=== PATIENT | female | born 1975 | race Caucasian/White ===

== ENCOUNTER → 2021-04-05 | Outpatient (CLI) | payer OTHER, SELFPAY ==
--- NOTE | 2021-04-05 07:40 | ASPS_PTH ---
PATIENT: RC DIANA LOC: [facility]#:[id number] AGE/SX: 45/F ROOM: RE04/05/[address]: Dr. Ricky Norman MD : 1975 BED: DIS: 04/05/2021 SPEC #: [id number] RECD: 04/05/21 10:57 STATUS: GARY WHYTE #: [id number] ALFREDO: 04/05/21 07:[address]: Ricky Norman DEPT: CYTOLOGY RECD BY: Mecca Ahuja ENTERED: 04/05/21 12:56 SP TYPE: ASPIRATION OTHR DR: Dr. Abrahan Ibrahim MD Tissues: Thyroid gland, NOS Procedures: Special Stain Group II Cytology Other HEADER OPERATION: Right thyroid fine needle aspiration PRE-OP DIAGNOSIS: Bilateral thyroid nodules TISSUE SUBMITTED: Right thyroid slides x10 DIAGNOSIS CYTOLOGY Right thyroid nodule, FNA (smears): Consistent with benign follicular/colloid nodule. Adequate for evaluation. See comment. SJ:dunia 04/08/2021 COMMENT Correlation with clinical, radiologic findings and appropriate follow up are necessary. Please make reference to previous specimens ([id number]), right thyroid nodule, FNA with diagnosis of ?consistent with colloid nodule? and ([id number]) right thyroid, FNA with diagnosis of ?consistent with cystic colloid nodule.? CYTOLOGY STUDY Slides are reviewed. CYTOLOGY GROSS Received are ten smears labeled with the patient's name and designated per the requisition as right thyroid. Submitted for staining. / dunia 04/05/2021 TC:5 CPT: 60513
[2021-04-05 07:56] VITALS: BMI 25.1
== END | disposition home or self-care (01) ==
LOC: LABSPEC 11:31
PROVIDERS: PCP Family Medicine; Visit Provider Surgery
DX: E04.2 Nontoxic multinodular goiter (principal)
CPT/HCPCS: 88161; 88313

== ENCOUNTER → 2021-04-23 12:06 | Outpatient (CLI) | payer OTHER, SELFPAY ==
[2021-04-05 07:56] VITALS: BMI 25.1
--- NOTE | 2021-04-23 12:53 | ST.MBS ---
Modified Barium Swallow - Patient Information Study Date: 04/23/21 Study Time: 12:00 Direct Billable Minutes: 90 Total Minutes procedure & reportin Diagnosis: Dysphagia, unspecified (R13.10) Referring Physician: Ricky Norman Reason for Referral: Objectively assess swallow function and risk for aspiration. Medical History: PMH: Acid reflux, Anxiety, Arthritis, Asthma exercise induced, Depression, Dysphagia. The patient additionally reports history of benign thyroid nodule. She has complaints of sensation of air that she must clear prior to her swallow. She reports she will occasionally cough with food due to a sensitive gag reflex, but otherwise denies coughing/throat clearing with po intake. Current Diet Ordered: Regular Textures / Thin Liquids Dentition: WNL - Study Findings Consistencies: Thin Liquid, [place] Thick Liquid, Honey Thick Liquid, Pudding, Cookie - Penetration-Aspiration Scale Penetration-Aspiration Scale: OBJECTIVE ASSESSMENT OF SWALLOW FUNCTION (QUANTITATIVE ? PER TRIAL): PENETRATION / ASPIRATION SCALE (COLE): 1 = does not enter airway 2 = enters airway/above vocal folds/ejected 3 = enters airway/above vocal folds/not ejected 4 = enters airway/contacts vocal folds/ejected 5 = enters airway/contacts vocal folds/not ejected 6 = enters airway/below vocal folds/ejected 7 = enters airway/below vocal folds/not ejected despite effort 8 = enters airway/below vocal folds/no effort VIDEOFLOROSCOPIC SCALE SCORE (COLE): Grade I = aspiration of material that has penetrated into the laryngeal vestibule, intact cough reflex Grade II = aspiration < 10 % of the bolus, intact cough reflex Grade III = aspiration of < 10 % of the bolus, reduced cough reflex or aspiration of > 10 % of the bolus, intact cough reflex Grade IV = aspiration of > 10 % of the bolus, reduced cough reflex - Penetration-Aspiration Scale Score Thin Liquid via teaspoon Result: 1= does not enter airway Thin Liquid via small single sip from cup Result: 1= does not enter airway Thin Liquid via large single sip from cup Result: 1= does not enter airway Thin Liquid via sequential sips from cup Result: 1= does not enter airway [place] Thick Liquid via small single sip from cup Result: 1= does not enter airway Honey Thick Liquid via small single sip from cup Result: 1= does not enter airway Pudding Result: 1= does not enter airway Cookie Result: 1= does not enter airway Thin Liquid via single sip from straw Result: 2= enter airway/above vocal folds/ejected - Trace penetration. Thin Liquid via single sip from straw Trial 2 Result: 1= does not enter airway Thin Liquid via sequential sips from straw Result: 1= does not enter airway - Oral Phase Labial Seal: No Labial Escape Tongue Control During Bolus Hold: Posterior escape of less than half of bolus Bolus Preparation/Mastication: Timely and efficient chewing and mashing Bolus Transport/Lingual Motion: Brisk tongue motion Oral Residue: Residue collection on oral structures - Collection of residue noted only with cookie trial, which the patient cleared independently with use of a second swallow. - Pharyngeal Phase Initiation of Pharyngeal Swallow: Bolus head in pyriforms Soft Palate Elevation: Trace column of contrast/air between soft palate and pharyngeal wall Laryngeal Elevation: Comp. Superior move thyroid cart w/comp. apprx arytenoid cart-epig pet Anterior Hyoid Excursion: Complete anterior movement Epiglottic Movement: Partial inversion Laryngeal Vestibule Closure at Height of Swallow: Complete; no air/contrast in laryngeal vestibule Pharyngeal Stripping Wave: Present - diminished Pharyngoesophageal Segment Opening: Complete distension and complete duration; no obstruction of flow Tongue Base Retraction: Trace column of contrast between tongue base & post. pharyngeal wall Pharyngeal Residue: Complete pharyngeal clearance - Esophageal Phase Esophageal Clearance: Complete clearance - Treatment Strategies Effects of treatment strategies attemped:: No strategies assessed at this time as the patient presents with swallow function grossly WNL. - Diagnosis/Impression Diagnosis: Swallow function grossly WNL Impression: The patient presented with mildly delayed initiation of the swallow, especially noted with consumption of thin liquids. She has mildly decreased pharyngeal stripping wave; however, the patient demonstrates good airway closure and adequate pharyngeal contraction resulting in only trace pharyngeal residues after the swallow. She had one occurrence of trace penetration of thin liquids in the laryngeal vestibule above the vocal folds via straw that fully ejected. - Recommendations Diet: Regular Textures, Thin Liquids Compensatory Strategies: Small Bites, Small Sips, Sitting upright, Remain sitting upright for 30 minutes after PO intake Recommend Repeat Modified Barium Swallow: No Need for Skilled Speech Therapy Services: No Education Completed: 1. Described result of evaluation., 5. Patient demonstrates recommended strategies. - Status Active ST Patient: Not Active - Contact Information [facility] Speech Therapy:: Chata Duran M.A., [facility] Speech Language Pathologist [facility] [address] [place] [address] [email or web address] [phone]
== END ==
PROVIDERS: PCP Family Medicine; Referring Provider Surgery; Visit Provider Surgery
DX: R13.10 Dysphagia, unspecified (principal)
CPT/HCPCS: 74230; 92611

== ENCOUNTER → 2021-05-17 | Outpatient (CLI) | payer OTHER, SELFPAY ==
--- NOTE | 2021-05-17 | LES_PTH ---
PATIENT: RC DIANA LOC: [facility] U#:[id number] AGE/SX: 46/F ROOM: RE05/17/[address]: Dr. Ricky Norman MD : 1975 BED: DIS: 05/17/2021 SPEC #: [id number] RECD: 05/17/21 14:47 STATUS: GARY RERicki #: [id number] ALFREDO: 05/17/21 00:[address]: Ricky Norman DEPT: SURGICAL PATHOLOGY RECD BY: Anthony Wiley ENTERED: 05/20/21 08:06 SP TYPE: Lesion OTHR DR: Dr. Abrahan Ibrahim MD Tissues: Skin of face, NOS Procedures: Surgery Specimen Level IV HEADER OPERATION: Excision right facial lesion PRE-OP DIAGNOSIS: Facial lesion TISSUE SUBMITTED: Right facial lesion MICROSCOPIC DIAGNOSIS Right facial lesion, excisional biopsy: Inflamed fibroepithelial polyp, completely excised. See comment. STEFANIA:dunia 05/21/2021 COMMENT Immunohistochemistry ([id number]) supports the above diagnosis. Case has been reviewed in consultation with Dr. Bowers who concurs with the above diagnosis. IDC:AM MICROSCOPIC DESCRIPTION Slides are reviewed. GROSS DESCRIPTION Received in fixative is one container labeled with the patient's name and designated right face. The specimen consists of a candelario-white skin ellipse measuring 0.7 x 0.4 x 0.3 cm. There is a raised candelario lesion on the surface measuring 0.5 x 0.5 x 0.3 cm. The specimen is inked, serially sectioned and submitted entirely in one cassette. / SJ:dunia 05/20/21 TC:1 CPT: 73254
--- NOTE | 2021-05-17 | IMM_PTH ---
PATIENT: RC DIANA LOC: [facility] U#:[id number] AGE/SX: 46/F ROOM: RE05/17/[address]: Dr. Ricky Norman MD : 1975 BED: DIS: 05/17/2021 SPEC #: [id number] RECD: 05/21/21 11:11 STATUS: GARY REQ #: [id number] ALFREDO: 05/17/21 00:[address]: Ricky Norman DEPT: IMMUNOHISTOCHEMISTRY RECD BY: Lori Bhakta ENTERED: 05/21/21 11:12 SP TYPE: IMMUNO OTHR DR: Dr. Abrahan Ibrahim MD Tissues: Skin of face, NOS Procedures: CK5-6 (add) MELAN-A (initial) P40 (add) S-100 (add) PHYSICIAN & INSTITUTION [place] [phone] SPECIMEN INFORMATION: Tissue Source: Right facial lesion Clinical Info: Facial lesion Specimen Number: [id number] CPT code: 40714, 02845 x3 METHODOLOGY: Deparaffinized sections of prefer/formalin-fixed tissue or PAP/DQ stained slides are incubated with monoclonal/polyclonal antibodies/oligonucleotide probes. Localization is made via biotin free immunoperoxidase method. Appropriate controls are performed and reacted as expected. Results on target cell population are indicated in the following table: RESULTS: ANTIBODY / CLONE RESULT Melan A (A103) negative S-100 (4C4.9) negative CK5-6 (D5 & 1684) positive P40 (BC28) positive These tests were developed and their performance characteristics determined by [facility]. They may not have been cleared or approved by the U.S. Food and Drug Administration. The FDA has determined that such clearance or approval is not necessary. The above immunohistochemical/dualISH markers are ordered and reviewed by the Pathologist. INTERPRETATION: Right facial lesion, excision: Consistent with inflamed fibroepithelial polyp. SJ:dunia 05/22/2021
[2021-05-17 05:30] VITALS: BMI 25.4
== END | disposition home or self-care (01) ==
LOC: LABSPEC 15:09
PROVIDERS: PCP Family Medicine; Referring Provider Surgery; Visit Provider Surgery
DX: L98.8 Other specified disorders of the skin and subcutaneous tissue (principal)
CPT/HCPCS: 88305; 88341; 88342

== ENCOUNTER 2021-06-20 11:33 | Day surgery (SDC) | payer OTHER, SELFPAY ==
[2021-05-17 05:30] VITALS: BMI 25.4
--- NOTE | 2021-06-19 15:59 | EKG12_ITS ---
Test Reason : PRE-OP Blood Pressure : / mmHG Vent. Rate : 074 BPM Atrial Rate : 074 BPM P-R Int : 170 ms QRS Dur : 074 ms QT Int : 380 ms P-R-T Axes : 050 078 059 degrees QTc Int : 421 ms Normal sinus rhythm Normal ECG Confirmed by AMANDA GRANDA, TEE ([id number]), design editor SHREYA NERI ([id number]) on 06/20/2021 9:07:16 AM Referred By: Ricky Norman Confirmed By:TEE PATEL MD
[2021-06-19 16:27] LABS: Hematocrit 41.1 % (37-47); Hemoglobin 13.2 g/dL (12.0-15.0); Mean Corp Hgb Conc 32.1 g/dL (32-36); Mean Corpuscular Hgb 27.4 pg (27.0-32.0); Mean Corpuscular Volume 85.3 fL (81-99); Mean Platelet Vol. 10.1 fl (6.2-12.0); Platelet Count 248 K/mm3 (150-450); RBC Distribution Width CV 12.3 % (11.6-14.6); RBC Distribution Width SD 38.5 fl (35.1-43.9); Red Blood Count 4.82 M/mm3 (4.2-5.4); White Blood Count 8.5 K/mm3 (4.4-11.0)
[2021-06-19 16:34] LABS: Anion Gap 3 (5-15); BUN 11 mg/dL (7-18); BUN/Creat Ratio 17.1 RATIO (10-20); Calcium,Total 8.7 mg/dL (8.5-10.1); Chloride 105 mmol/L (98-107); Creatinine, Serum 0.64 mg/dL (0.55-1.02); EST Glomerular Filtration Rate 104 mL/min (>60); Est Glom Filt Rate - Afr Amer 126 mL/min (>60); Glucose 98 mg/dL (74-106); Potassium 3.7 mmol/L (3.5-5.1); Sodium Level 138 mmol/L (136-145)
[2021-06-20] VITALS (7 sets, daily range): BP systolic 115–138; BP diastolic 67–83; PULSE 80–105; RESP 14–16; TEMP 35.9–36.4; O2SAT 97–100; BMI 25.2
--- NOTE | 2021-06-20 11:57 | HP.PCM_ITS ---
History and Physical Date of Admission: 06/20/21 Chief Complaint: update H&P for thyroid surgery Vp Construction Required: No Is patient in pain?: No Allergies chlorhexidine Adverse Reaction (Mild, Verified 05/21/21 09:38) Other Medications Ibuprofen [Motrin] 800 mg PO TID 08/18/15 [History Confirmed 05/21/21] multivitamin 1 tab PO DAILY 04/05/21 [History Confirmed 05/21/21] Is last menstrual period known: No Post menopausal: No Patient : No PFSH Medical History Acid reflux Anxiety Arthritis Asthma, exercise induced Depression Dysphagia Hemorrhoids Surgical History Previous back surgery S/P arthroscopy of knee S/P bladder repair S/P carpal tunnel release S/P tonsillectomy Family History Mother Breast cancer Heart disease CVA (cerebral vascular accident) Thyroid disorder Father Hypertension Heart disease Cancer esophageal cancer Social History Smoking Status: Never smoker alcohol intake: current alcohol intake frequency: a few times a month HPI HPI HPI: RC DIANA, is a 46 F who presents to the office today for suture removal and update history and physical for an elective upcoming lobectomy. Patient had an excision of right cheek skin lesion by Dr. Norman on 05/17. She returns for suture removal. Pathology is pending. Patient denies recent hospitalizations or illnesses. She denies previous cardiac issues. She denies seeing a lead php developer. She notes history of exercise induced asthma. She denies having to use an inhaler. She notes nausea, vomiting s/p anesthesia. She denies recent medication change. Patient's previous history from Dr. Norman: RC DIANA, is a 45 F who presents to the office today for surgical consultation regarding thyroid nodules. The patient is referred by Rebekah ramírez, [employer] and a written copy of my surgical consult recommendations will return to her. At the [facility] on March 25, 2021 the patient had thyroid ultrasound performed. The right lobe measured 4.8 x 2.5 x 2.5 cm. In the right mid lobe there is a 3.8 x 2.4 x 2.9 cm nodule previously aided in 3.5 x 2.1 x 2.5. This was TI-RADS 5. FNA advised. The left lobe of the thyroid measured 4.5 x 1.1 x 1.3 cm. The left lobe there is a 0.6 x 0.2 x 0.5 cm nodule previously had been 0.5 x 0.4 x 0.5 cm. TI-RADS 4. No fine-needle aspiration or follow-up recommended The patient presents stating that she is having some trouble swallowing. She states that she can swallow food without discomfort but when she goes to simply swallow saliva she feels like there is an air block and that she is swallowing air. She then has to burp or belch. She reminds me that I have assisted her with a fine-needle aspiration of the thyroid before. I do not have records of that she states it was 2017 performed at the clinic of the right lobe and that it was benign. Family history is notable that her mother had a total thyroidectomy. The patient does not believe that was due to malignancy. Laboratory demonstrates March 2021 she had a TSH level of 0.691 RC DIANA, is a 46 F who presents to the office today for ongoing surgical follow-up regarding thyroid nodules. On April 05, 2021 I did a right th yroid ultrasound-guided fine-needle aspiration with cytology consistent with a benign follicular colloid nodule. She has a 3.8 x 2.4 x 2.9 cm right thyroid nodule. She has a 0.6 x 0.2 x 0.5 cm left thyroid nodule TI-RADS 4. The patient was concerned about a feeling of air swallowing so on April 23, 2021 a modified barium swallow was obtained. This was performed via speech therapy. The diagnosis was that the swallowing function was grossly normal. There did not appear to be impingement by the thyroid. She is interested in pursuing at least a right thyroid lobectomy. She is unsure as to how to proceed on the left. ROS General General: No weight change, appetite, fatigue, colon cancer, breast cancer or weakness HEENT HEENT: No difficulty swallowing, eye injury, eye surgery, swollen glands or hoarseness Endo Endocrine: No thyroid disease, diabetes mellitus, thyroid cancer, Hair loss, heat intolerance or cold intolerance Skin Skin: No rash or changing moles Breast Breast: No left breast lump, right breast lump, nipple discharge, breast pain, abnormal mammogram, abnormal US or breast enlargement Musc Musculoskeletal: No back problems, arthritis, rheumatoid arthritis, gout or edmundo nt pain Cardio Cardiovascular: No murmur, pacemaker, heart disease, atrial fibrillation, high blood pressure, heart attack, heart stent, palpitations, shortness of breat with exertion or chest pain Psych Psychiatric: No depression, anxiety or hearing voices Resp Respiratory: No shortness of breath, No sleep apnea, No cough, No COPD, No asthma, No emphysema and No wheezing Gastro Gastrointestinal: No abdominal pain, No nausea or vomiting, No diarrhea, No constipation, No blood in stool, No acid reflux, No hemorrhoids, No ulcers, No gallbladder problem and No black,tarry stools Spike Hematologic: No blood thinners, No blood disorders, No bleeding, No anemia and No blood clots Neuro Neurologic: No system reviewed and no additional complaints, except as documented, No as per HPI, No abnormal gait, No abnormal hearing, No abnormal movements, No abnormal speech, No behavioral changes, No burning sensations, No confusion, No convulsions, No disequilibrium, No dizziness, No localized weakness, No frequent falls, No headache(s), No lack of coordination, No loss of vision, No memory loss, No numbness, No other visual disturbances, No radicular pain, No restless legs, No sensory deficit, No syncope, No tingling, No tremor(s), No weakness and No other Exam Const General: cooperative, healthy appearing, comfortable and no acute distress [facility] Head: normal to inspection Eyes General: appearance normal, both eyes and all related structures Neck Neck: normal visual inspection Neck mass: No Resp Effort & Inspection: normal respiratory effort Auscultation: clear to auscultation bilaterally Cardio Rate: regular rate Rhythm: regular rhythm GI Inspection: normal to inspection Palpation: soft Auscultation: normal bowel sounds Skin Other: Right cheek- incision c/d/i. Four sutures were entirely removed from the incision Neuro General: no focal motor deficits and CN's II-XI intact bilaterally Extrem General: normal to inspection Psych Appearance: grossly normal Affect: normal affect Assessment and Plan Assessment and Plan (1) Skin lesion of face: Status: Acute Comment: Successful excision right cheek skin lesion Plan - Briana HINSON PA-C: Pathology pending (2) Right thyroid nodule: Status: Acute Plan - Briana HINSON PA-C: Dr. Norman will plan to perform a right thyroid lobectomy. Procedure details, risks and benefits have been explained. Patient has had the opportunity to ask and have questions answered. Patient verbally understands and agrees with the plan. We will call patient with pathology results. Coding Level of Care Code No Charge Diagnoses Skin lesion of face L98.9 Right thyroid nodule E04.1 Comment Update H&P 05/21/21 3099<Electronically signed by Briana HINSON PA-C> I have re-examined the patient. There are no clinical changes since date of exam. Ricky Norman M.D., F.A.C.S.
[2021-06-20] MEDS: Lactated Ringers 1,000 ML 100 ML IV ×2 (12:02→13:30)
--- NOTE | 2021-06-20 12:08 | EX.PCM.DISCH ---
Discharge Instructions Procedure General Surgery Diet Discharge Diet: Light diet - advance as tolerated (if you have questions about your diet instructions, please talk to you doctor.) Activity Discharge Activity: May Not Drive (for 3-5 days or while taking narcotic pain medicine.) May shower in (days): 1 Lifting Restrictions: 10 pounds Dressing / Incision Call your doctor if your incision/area has: Continuous Slow Oozing, Sudden Increased Bleeding, Increased Pain/ Swelling, Increased Redness and Foul Smelling Discharge Call your doctor if you observe: Fever of 101 or Higher Suture Line Care: Avoid Pulling/Pushing and Avoid Pinching/Bending Follow Up Care Please Follow Up With: Ricky Normna MD When: Call [phone] to make an appointment to be seen in about 10 days. Test Results: You may remove your tape dressing tomorrow. You may shower over the surgical glue. The surgical glue will gradually wear off. Ricky Norman M.D., F.A.C.S. Discharge Plan Admission Primary Reason for Your Visit: Right thyroid nodule Attending Provider: Ricky Norman Primary Care Provider: Abrahan Ibrahim Discharge Orders/Prescriptions Prescriptions: Continued Ibuprofen [Motrin] 800 MG tablet 800 mg PO TID PRN (Reason: Pain) RF: 0 Referrals / Follow Up: Abrahan Ibrahim MD [Primary Care Provider] - Disposition Disposition (needs filled in before D/C Order can be placed): Home, Self Care
--- NOTE | 2021-06-20 13:30 | THYROID_PTH ---
PATIENT: RC DIANA [place] [facility] [place][id number] AGE/SX: 46/F ROOM: RE06/20/[address]: Dr. Ricky Norman MD : 1975 BED: DIS: 06/20/2021 SPEC #: [id number] RECD: 06/21/21 06:43 STATUS: GARY WHYTE #: [id number] ALFREDO: 06/20/21 13:[address]: Ricky Norman DEPT: SURGICAL PATHOLOGY RECD BY: Mecca Ahuja ENTERED: 06/21/21 08:16 SP TYPE: THYROID OTHR DR: Dr. Abrahan Ibrahim MD Tissues: Thyroid gland, NOS Procedures: Surgery Specimen Level V HEADER OPERATION: Thyroid lobectomy PRE-OP DIAGNOSIS: Right thyroid nodule TISSUE SUBMITTED: Right thyroid lobe, isthmus MICROSCOPIC DIAGNOSIS Right thyroid lobe, lobectomy: Multinodular goiter. Mild chronic inflammation. See comment. SJ:dunia 06/24/2021 COMMENT Please make reference to previous cytology specimen ([id number]) right thyroid nodule, FNA with diagnosis of ?consistent with benign follicular/colloid nodule.? Case has been reviewed in consultation with Dr. Bowers who concurs with the above diagnosis. IDC:AM MICROSCOPIC DESCRIPTION Slides are reviewed. GROSS DESCRIPTION Received in fixative is one container labeled with the patient's name and designated right thyroid/ isthmus. The specimen consists of a lobe of thyroid with attached isthmus measuring 4.5 x 4 x 2.5 cm. The isthmus measures 2 x 1.6 x 0.8 cm and the lobe of thyroid measures 4 x 3 x 2.5 cm. The isthmic margin is inked in yellow ink. The remainder of the specimen is inked in black ink. Serial sections of the thyroid lobe reveal an ill-defined nodule occupying most of the lobe with gelatinous cut surfaces. The specimen is totally submitted in ten cassettes as follows: 1 & 2 - isthmus (#2 contains isthmic margin of resection), 3-10 - thyroid lobe. / AM:dunia 06/21/21 TC:5 CPT: 77391
--- NOTE | 2021-06-20 14:15 | PCM.OPRPT ---
Problems Associated Problem List Diagnoses (1) Right thyroid nodule: Report of Operation Date of Procedure: 06/20/21 Pre-Operative Diagnosis: Symptomatic right thyroid nodule Post-Operative Diagnosis: Same Surgery/Procedure Performed:: Right thyroid lobectomy Description of Surgical Findings:: Timeout and informed consent was obtained. 46-year-old female was taken to the operating placed on table underwent general endotracheal intubation anesthesia. Clean procedure. Neck was sterilely prepped and draped. A transverse suprasternal incision was created sharp dissection carried down through the subcutaneous tissues platysmal flaps were raised strap muscles incised vertically access was gained to the right lobe of the thyroid by slightly incising the strap muscles tedious blunt and sharp dissection performed the inferior pole was identified first and using careful Crile dissection and harmonic scalpel dissection and were needed hemoclips the inferior pole was elevated. I then addressed the superior pole and superior vessels were secured with the Harmonic and hemoclips this then allowed for dissection around the middle portion of the enlarged nodular lobe was able to transect the middle thyroidal vein and elevate the plane anteriorly and then performed dissection directly on the posterior aspect of the gland. The course of the parapharyngeal nerve is identified and protected. The gland was tightly adherent to the peritracheal tissue and particularly at the ligament of Dawkins. Careful tedious dissection performed making sure hemostasis was intact then shows able to elevate the right lobe off of the anterior surface of the trachea resected a short pyramidal lobe and then to the left of the isthmus transected the gland with harmonic scalpel I placed a 3-0 silk suture to luis that area. The evacuation area was inspected was some fibrothick tissue posteriorly at the typical position for parathyroid and lymph nodes and recurrent antral nerve. Did not feel that this represented residual thyroid tissue and upon further inspection could not actually identify a gland like structure to sample. I elected not to further spread in this tissue because of potential harm. Palpation and visualization failed to reveal any obvious residual thyroid. There was no gross adenopathy other than this 1 area of thickened tissue. Fibrillar was placed in the neck to assist with hemostasis. The strap muscles were repaired and approximated with 3-0 Vicryl. The platysma was approximated with the same. Skin edges approximated opted 5-0 Vicryl subdermal sutures. The periincisional area was anesthetized with 30 cc of 0.5% Marcaine. Dermabond was applied. Telfa tape dressing applied. Sponge and instrument and needle counts were reported to the surgeon to be correct. Specimen right lobe of thyroid. Drains none. Blood loss minimal. The patient tolerated procedure well was taken to the recovery area in satisfactory condition without them complication Ricky Norman M.D., F.A.C.S. Surgeon: Ricky Norman Type of Anesthesia: General Anesthesiologist: Chad Cabrera
[2021-06-20] MEDS: Bupivacaine Mpf 0.5% 30 ML VIAL (14:20)
== END 2021-06-20 16:19 | disposition home or self-care (01) ==
LOC: SDC 11:33 → AC 11:34
PROVIDERS: PCP Family Medicine; Referring Provider Surgery; Visit Provider Surgery
PROC: (CPT 60220; principal; 2021-06-20 13:15)
DX: E04.1 Nontoxic single thyroid nodule (principal); J45.990 Exercise induced bronchospasm
CPT/HCPCS: 00320; 60220; 36415; 80048; 85027; 87426; 88307; 93005; C9803; J7120; J2405